=== PATIENT | female | born 1940 | race Caucasian/White ===

== ENCOUNTER 2017-09-07 19:17 | Inpatient (IN) | payer MEDICARE, BC ==
--- NOTE | 2017-09-07 19:36 | EDM.PDOC ---
ED HPI GENERAL MEDICAL PROBLEM - General Chief Complaint: Cardiovascular Problem Stated Complaint: HEART POUNDING,NAUSEA Time Seen by Provider: 09/07/17 19:35 Source of Information: Reports: Patient History Limitations: Reports: No Limitations - History of Present Illness INITIAL COMMENTS - FREE TEXT/NARRATIVE: 77-year-old female presents to the ED with a feeling of her heart pounding hard in her chest. Perhaps made her feel a little dizzy and lightheaded. It occurs at rest as well as well moving. She states it started about mid afternoon this afternoon his been off and on since that time. Associated nausea without any vomiting. She had only a couple crackers for supper. Otherwise she has been feeling well with no recent illnesses. No fever chills nausea or vomiting. No cough or sputum production. No known coronary disease. No chest pain. Doesn't really short of breath with the palpitations. Feels like the heart is working hard pounding hard against her chest. Of note she is on a compound thyroid preparation from [facility]. She ran out of it for about 5 days as they didn't have the ingredients to compounded new batch. She's been back on it for about 6 days. It is believed that the compound contains both T3 and T4 forms of thyroid hormone replacement. She's been using it for about 4 years. Usually doesn't have any troubles with her blood pressure. Onset: Today Onset Date: 09/07/17 Onset Time: 14:00 Duration: Hour(s):, Intermittent, Waxing/Waning Location: Reports: Chest (Feels her heart racing and pounding in her chest. Associated with mild involvement of dizziness.) Quality: Reports: Other (Pounding heart) Severity: Moderate (and going fast.) Improves with: Reports: None Worsens with: Reports: None Context: Denies: Activity, Exercise, Lifting, Sick Contact, Trauma, Other Associated Symptoms: Reports: Loss of Appetite, Malaise, Nausea/Vomiting, Weakness (Nausea with no vomiting). Denies: No Other Symptoms, Confusion, Chest Pain, Cough, cough w sputum, Diaphoresis, Fever/Chills, Headaches, Rash, Seizure, Shortness of Breath, Syncope (With a little nausea.) Treatments [employer]: Reports: Other (see below) (None.) - Related Data Allergies Allergy/AdvReac Type Severity Reaction Status Date / Time No Known Allergies Allergy Verified 09/07/17 19:37 Home Meds: Home Meds . [Unable to Verify Home Med List] 09/07/17 [History] Past Medical History Endocrine/Metabolic History: Reports: Hypothyroidism (Using a compounded medication thyroid supplement from her [facility] pharmacy.) Social & Family History - Living Situation & Occupation Living situation: Reports: Occupation: Retired ED ROS GENERAL - Review of Systems Review Of Systems: See Below Constitutional: Reports: Malaise, Weakness, Fatigue, Decreased Appetite. Denies : Fever, Chills, Weight Loss HEENT: Reports: No Symptoms, Glasses Respiratory: Denies: Shortness of Breath, Wheezing, Pleuritic Chest Pain, Cough , Sputum, Hemoptysis, Other Cardiovascular: Reports: Lightheadedness, Palpitations (See history of present illness). Denies: Chest Pain, Blood Pressure Problem, Claudication, Dyspnea on Exertion, Edema (Little Lightheaded Dizzy When the Palpitations Occur.), Orthopnea Endocrine: Reports: No Symptoms GI/Abdominal: Reports: Nausea (With no vomiting. Started with same time as her heart started palpating working hard this afternoon.) : Reports: Frequency, Incontinence (Mild stress incontinence.) Musculoskeletal: Reports: Joint Pain (Some pain knees low back.) Skin: Reports: No Symptoms Neurological: Reports: No Symptoms Psychiatric: Reports: No Symptoms Hematologic/Lymphatic: Reports: No Symptoms Immunologic: Reports: No Symptoms ED EXAM, GENERAL - Physical Exam Exam: See Below Exam Limited By: No Limitations General Appearance: Alert, WD/WN, Anxious, Mild Distress Eye Exam: Bilateral Eye: Normal Inspection Throat/Mouth: Normal Inspection, Normal Lips, Normal Oropharynx Head: Atraumatic, Normocephalic Neck: Normal Inspection, Supple, Non-Tender, Full Range of Motion. No: Lymphadenopathy (L), Lymphadenopathy (R) Respiratory/Chest: No Respiratory Distress, Lungs Clear, Normal Breath Sounds, No Accessory Muscle Use, Other Cardiovascular: Normal Peripheral Pulses (Marked kyphosis thoracic spine.), Regular Rate, Rhythm, No Edema, No Gallop, No Murmur, No Rub, Other (Monitor reveals heart rate at 86/m in sinus. Occasional PACs were appreciated.) Peripheral Pulses: 2+: Posterior Tibial (L), Posterior Tibial (R), Dorsalis Pedis (L), Dorsalis Pedis (R) GI/Abdominal: Normal Bowel Sounds, Soft, Non-Tender, No Organomegaly, No Distention, No Abnormal Bruit, Other (Total abdominal hysterectomy and BSO scars evident.) Back Exam: Other (Moderate kyphosis thoracic spine mild scoliosis mid thoracic spine) Extremities: Normal Inspection, Normal Range of Motion, Non-Tender, No Pedal Edema Neurological: Alert, Oriented, CN II-XII Intact, Normal Cognition, Normal Gait Psychiatric: Normal Affect, Anxious (Mildly anxious.) Skin Exam: Warm, Dry, Intact, Normal Color, No Rash EKG INTERPRETATION EKG Date: 09/07/17 Time: 19:55 Rhythm: NSR Rate (Beats/Min): 75 [place]: LAD-Left Greenwood Deviation (Left diaphysis deviation of -4 2. Left anterior fascicular block pattern.) P-Wave: Present QRS: Other (Borderline current try criteria for left ventricular hypertrophy pattern. High R-wave in lead 1 deep S wave in lead 3.) ST-T: Other (Mild diffuse early repolarization pattern.) QT: Prolonged (Mildly prolonged.) EKG Interpretation Comments: Abnormal ECG Course - Vital Signs Last Recorded V/S: Last Vital Signs Temp 35.9 C 09/07/17 19:34 Pulse 81 09/07/17 21:52 Resp 15 09/07/17 19:34 BP 149/70 H 09/07/17 21:52 Pulse Ox 100 09/07/17 19:34 - Orders/Labs/Meds Orders: Active Orders 24 hr Category Date Time Status Admission Status [Patient Status] [ADT] Routine ADT 09/07/17 22:45 Active EKG Documentation Completion [RC] STAT Care 09/07/17 19:43 Active Chest 1V Frontal [CR] Stat Exams 09/07/17 19:43 Taken FREE T3 [REF] Stat Lab 09/07/17 20:06 Received Sodium Chloride 0.9% [Normal Saline] 1,000 ml Med 09/07/17 20:00 Active IV ASDIRECTED Medication Orders Sodium Chloride (Normal Saline) 1,000 mls @ 100 mls/hr IV ASDIRECTED DYLLAN Last Admin: 09/07/17 20:19 Dose: 100 mls/hr Labs: Laboratory Tests 09/07/17 09/07/17 09/07/17 Range/Units 20:06 20:06 20:06 WBC 5.72 (3.98-10.04) K/mm3 RBC 4.21 (3.98-5.22) M/mm3 Hgb 12.9 (11.2-15.7) gm/L Hct 38.3 (34.1-44.9) % MCV 91.0 (79.4-94.8) fl MCH 30.6 (25.6-32.2) pg MCHC 33.7 (32.2-35.5) g/dl RDW Std Deviation 42.7 (36.4-46.3) fL Plt Count 142 L (182-369) K/mm3 MPV 12.6 H (9.4-12.3) fl Neutrophils % (Manual) 85 H (40-60) % Band Neutrophils % 0 (0-10) % Lymphocytes % (Manual) 12 L (20-40) % Atypical Lymphs % 0 % Monocytes % (Manual) 3 (2-10) % Eosinophils % (Manual) 0 L (0.7-5.8) % Basophils % (Manual) 0 L (0.1-1.2) Platelet Estimate Adequate RBC Morph Comment Normal PT 11.4 (8.0-13.0) SECONDS INR 1.06 Sodium 140 (136-145) mEq/L Potassium 3.4 L (3.5-5.1) mEq/L Chloride 104 (98-107) mEq/L Carbon Dioxide 23 (21-32) mEq/L Anion Gap 16.4 H (5-15) BUN 16 (7-18) mg/dL Creatinine 0.9 (0.55-1.02) mg/dL Est Cr Clr Drug Dosing 57.51 mL/min Estimated GFR (MDRD) > 60 (>60) mL/min BUN/Creatinine Ratio 17.8 (14-18) Glucose 111 (83-115) mg/dL Calcium 9.9 (8.5-10.1) mg/dL Magnesium 1.8 (1.8-2.4) mg/dl Total Bilirubin 0.6 (0.2-1.0) mg/dL AST 20 (15-37) U/L ALT 21 (14-59) U/L Alkaline Phosphatase 86 (46-116) U/L CK-MB (CK-2) 0.7 (0-3.6) ng/ml Troponin I < 0.017 (0.00-0.056) ng/mL NT-Pro-B Natriuret Pep (0-450) pg/mL Total Protein 7.4 (6.4-8.2) g/dl Albumin 4.0 (3.4-5.0) g/dl Globulin 3.4 gm/dL Albumin/Globulin Ratio 1.2 (1-2) Free T4 0.83 (0.76-1.46) ng/dL TSH 3rd Generation 2.170 (0.358-3.74) uIU/mL 09/07/17 Range/Units 20:06 WBC (3.98-10.04) K/mm3 RBC (3.98-5.22) M/mm3 Hgb (11.2-15.7) gm/L Hct (34.1-44.9) % MCV (79.4-94.8) fl MCH (25.6-32.2) pg MCHC (32.2-35.5) g/dl RDW Std Deviation (36.4-46.3) fL Plt Count (182-369) K/mm3 MPV (9.4-12.3) fl Neutrophils % (Manual) (40-60) % Band Neutrophils % (0-10) % Lymphocytes % (Manual) (20-40) % Atypical Lymphs % % Monocytes % (Manual) (2-10) % Eosinophils % (Manual) (0.7-5.8) % Basophils % (Manual) (0.1-1.2) Platelet Estimate RBC Morph Comment PT (8.0-13.0) SECONDS INR Sodium (136-145) mEq/L Potassium (3.5-5.1) mEq/L Chloride (98-107) mEq/L Carbon Dioxide (21-32) mEq/L Anion Gap (5-15) BUN (7-18) mg/dL Creatinine (0.55-1.02) mg/dL Est Cr Clr Drug Dosing mL/min Estimated GFR (MDRD) (>60) mL/min BUN/Creatinine Ratio (14-18) Glucose (83-115) mg/dL Calcium (8.5-10.1) mg/dL Magnesium (1.8-2.4) mg/dl Total Bilirubin (0.2-1.0) mg/dL AST (15-37) U/L ALT (14-59) U/L Alkaline Phosphatase (46-116) U/L CK-MB (CK-2) (0-3.6) ng/ml Troponin I (0.00-0.056) ng/mL NT-Pro-B Natriuret Pep 182 (0-450) pg/mL Total Protein (6.4-8.2) g/dl Albumin (3.4-5.0) g/dl Globulin gm/dL Albumin/Globulin Ratio (1-2) Free T4 (0.76-1.46) ng/dL TSH 3rd Generation (0.358-3.74) uIU/mL Meds: Medications Generic Name Dose Route Start Last Admin Trade Name Freq PRN Reason Stop Dose Admin Sodium Chloride 1,000 mls @ 100 mls/hr 09/07/17 20:00 09/07/17 20:19 Normal Saline IV 100 mls/hr ASDIRECTED DYLLAN Administration Discontinued Medications Generic Name Dose Route Start Last Admin Trade Name Freq PRN Reason Stop Dose Admin Metoprolol Succinate 25 mg 09/07/17 21:37 09/07/17 21:52 Toprol Xl PO 09/07/17 21:38 25 mg ONETIME ONE Administration Metoprolol Tartrate 5 mg 09/07/17 21:28 09/07/17 21:43 Lopressor IVPUSH 09/07/17 21:29 5 mg ONETIME ONE Administration Ondansetron HCl 4 mg 09/07/17 19:46 09/07/17 20:20 Zofran IVPUSH 09/07/17 19:47 4 mg ONETIME ONE Administration - Radiology Interpretation Free Text/Narrative:: 77-year-old female presents the ED with a history of intermittent palpitations where she feels her heart is racing and beating hard against her chest. This is happened intermittently since mid afternoon today. It can occur at rest or seated as well as standing. Associated mild dizziness or lightheadedness. Associated nausea without any vomiting. I'm time of my assessment she is a sinus rhythm and in the 80s with occasional PAC appreciated. Nurses appreciated the heart jumped some abdominal 120/m while she was lying and hopefully will have a strip of this recorded. Examination is completely normal. The only thing she's on his thyroid compounded supplement. She was off for 5 days and start back on about a week ago. Possible spike in thyroid hormone to cause palpitations. Plan: IV will be normal saline at 100 mils per hour. We'll give her Zofran 4 mg IV for nausea relief. She has quite anxious. ECG will be done with routine labs. This included T4 T3 and TSH. One view chest x-ray will also be obtained - Re-Assessments/Exams Free Text/Narrative Re-Assessment/Exam: 09/07/17 20:29 chest x-ray done portably shows moderate hyperinflated lung malik bilaterally. Cardiac silhouette is within normal limits. The visualized portion of the lung malik are normal. 09/07/17 21:01 White count is 5.72 with 85% neutrophils no bands. Hemoglobin is 12.9 with hematocrit of 38.3. Blood counts 142,000. PT is 11.4 with an INR 1.06. Sodium 140 with potassium of 3.4. Chloride 104 with a bicarbonate of 23. And a gap is 16.4. BUN is 16 with a creatinine of 0.9. Glucose is 111 with a calcium of 9.9. Magnesium is normal 1.8 total bilirubin is 0.6 liver function normal CK-MB fraction 0.7 troponin I is less than 0.017. BNP is 182. TSH is 2.170 normal. Free T4 is also low normal at 0.83. Therefore no laboratory abnormalities are evident to caused her palpitations. I'm going to have her get up walk L [place] she is about to the monitors to see if we can precipitate any further palpitations or arrhythmias. 09/07/17 21:27 rhythm strips obtained while she was in the bathroom and walking in the olvera reveal that she slips up into a rapid heart rate at around 150/m with T-wave inversion suggesting junctional tachycardia. It could be an ectopic atrial rhythm as well. Question whether she needs to stay in hospital versus try medication as an outpatient such as metoprolol. 09/07/17 21:46 case discussed with on-call hospice Dr. [place]. Due to the nature of her arrhythmia traveling as high as 155 1 60/m and intermittent places her at risk of stroke. I'm going to give her metoprolol 5 mg IV and then 25 mg Toprol XL by mouth. Discussed case with Dr. [place] and she will be admitted to the med surgery floor on telemetry as a full inpatient. Departure - Departure Time of Disposition: 22:47 Disposition: Admitted As Inpatient 67 Condition: Fair Clinical Impression: Paroxysmal atrial tachycardia by electrocardiogram, Hypokalemia Referrals: Swapnil Hawthorne MD [Primary Care Provider] - Forms: ED Department Discharge - My Orders Last 24 Hours: My Active Orders 09/07/17 19:43 EKG Documentation Completion [RC] STAT Chest 1V Frontal [CR] Stat 09/07/17 20:00 Sodium Chloride 0.9% [Normal Saline] 1,000 ml IV ASDIRECTED 09/07/17 20:06 FREE T3 [REF] Stat 09/07/17 22:45 Admission Status [Patient Status] [ADT] Routine - Assessment/Plan Last 24 Hours: My Active Orders 09/07/17 19:43 EKG Documentation Completion [RC] STAT Chest 1V Frontal [CR] Stat 09/07/17 20:00 Sodium Chloride 0.9% [Normal Saline] 1,000 ml IV ASDIRECTED 09/07/17 20:06 FREE T3 [REF] Stat 09/07/17 22:45 Admission Status [Patient Status] [ADT] Routine
[2017-09-07] MEDS ORDERED: Ondansetron 4 MG/2 ML SDV IVPUSH ONE (19:46)
[2017-09-07] MEDS ORDERED: Sodium Chloride 0.9% 1,000 ML IV SCH (20:00)
[2017-09-07] MEDS ORDERED: Metoprolol Tartrate 5 MG/5 ML SDV IVPUSH ONE (21:28)
[2017-09-07] MEDS ORDERED: Metoprolol Succinate 25 MG Tab.ER PO ONE (21:37)
[2017-09-07] MEDS ORDERED: Metoprolol Tartrate 5 MG/5 ML SDV IVPUSH PRN (23:16)
[2017-09-07] MEDS ORDERED: LORazepam 2 MG/ML SDV IVPUSH PRN (23:23)
[2017-09-07] MEDS ORDERED: Nitroglycerin 0.4 MG Tab.SL SL PRN (23:25)
[2017-09-07] MEDS ORDERED: Temazepam 7.5 MG Cap PO PRN (23:25)
[2017-09-07] MEDS ORDERED: Morphine 2 MG/ML Syringe IVPUSH PRN (23:25)
[2017-09-07] MEDS ORDERED: Lactated Ringers 1,000 ML IV SCH (23:30)
[2017-09-08] MEDS ORDERED: Acetaminophen 325 MG Tab PO PRN (05:40)
[2017-09-08] MEDS ORDERED: Morphine 4 MG/ML Syringe IVPUSH PRN (07:15)
--- NOTE | 2017-09-08 07:37 | CR ---
Chest: Portable view of the chest was obtained. Comparison: Prior chest x-ray of 07/14/10. Heart size and mediastinum are within normal limits for portable technique. Incidental tortuosity of the thoracic aorta is seen. Lungs are clear with no acute parenchymal densities. Mild scoliosis is noted within the spine. Impression: 1. Incidental findings. Nothing acute is identified on portable chest x-ray. Diagnostic code #2
--- NOTE | 2017-09-08 09:33 | CR ---
Chest: Two views of the chest were obtained. Comparison: Prior chest x-ray of 09/07/17. Heart size is normal. Tortuous thoracic aorta is seen. Lungs are clear. Lungs are hyperinflated compatible with emphysematous change. Mild degenerative change is noted within the spine with mild scoliosis. Impression: 1. Emphysematous change. Other incidental findings. 2. Nothing acute is seen. No significant change is seen from previous chest x-ray. Diagnostic code #2
[2017-09-08] MEDS: Enoxaparin 40 MG/0.4 ML Syringe SUBCUT SCH (10:19)
[2017-09-08] MEDS ORDERED: Magnesium Sulfate/Water 2 GM in Premix Bag 1 BAG IV ONE (11:43)
[2017-09-08] MEDS: [UNRECOGNIZED DRUG - OTHER] PO SCH (12:10)
--- NOTE | 2017-09-08 12:23 | PCM.HP ---
H&P History of Present Illness - General Date of Service: 09/08/17 Source of Information: Patient, Provider History Limitations: Reports: No Limitations - History of Present Illness Initial Comments - Free Text/Narative: 77 year old female with PMH of thyroid disease, presents with palpitations. 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 There has been shortness of breath associated with the palpitations. She denies chest pain, orthopnea, PND, syncopal/presyncopal episodes. The patient denies a cardiac history. The patient apparently takes a thyroid preparation that contains T3/T4. She has been without it for 4 days prior to admission. The patient had episodes documented with ambulation of a rapid heart rate, NCT; cannot exclude junctional tachycardia cf atrial tachycardia. She will be admitted to [place] telemetry. Onset of Symptoms: Reports: Sudden Symptom Onset Date: 09/07/17 Duration of Symptoms: Reports: Hour(s):, Getting Worse Location: Reports: Generalized Improves with: Reports: Medication Worsens with: Reports: Movement Associated Symptoms: Reports: Nausea/Vomiting, Shortness of Breath, Weakness - Related Data Allergies/Adverse Reactions: Allergies Allergy/AdvReac Type Severity Reaction Status Date / Time environmental/smoke Allergy Sneezing Uncoded 09/08/17 00:08 Home Medications: Home Meds C-Thyroid. 90 mg PO ACBREAKFAST 09/08/17 [History] Past Medical History HEENT History: Reports: Other (See Below) Other HEENT History: wears glasses Musculoskeletal History: Reports: Arthritis Endocrine/Metabolic History: Reports: Hypothyroidism - Infectious Disease History Infectious Disease History: Reports: Chicken Pox - Past Surgical History HEENT Surgical History: Reports: Tonsillectomy GI Surgical History: Reports: Appendectomy Female Surgical History: Reports: Hysterectomy Musculoskeletal Surgical History: Reports: Carpal Tunnel, Knee Replacement Other Musculoskeletal Surgeries/Procedures:: bilateral knee replacements Social & Family History - Family History Family Medical History: Noncontributory - Tobacco Use Smoking Status *Q: Never Smoker Second Hand Smoke Exposure: No - Caffeine Use Caffeine Use: Reports: Coffee Caffeine Use Comment: 1 cup/day currently, cut down from 3 cup/day 2 months ago - Recreational Drug Use Recreational Drug Use: No - Living Situation & Occupation Living situation: Reports: Occupation: Retired H&P Review of Systems - Review of Systems: Review Of Systems: See Below General: Reports: Malaise, Weakness, Fatigue, Decreased Appetite HEENT: Reports: No Symptoms Pulmonary: Reports: Shortness of Breath Cardiovascular: Reports: Palpitations Gastrointestinal: Reports: No Symptoms Genitourinary: Reports: No Symptoms Musculoskeletal: Reports: No Symptoms Skin: Reports: No Symptoms Psychiatric: Reports: Anxiety Neurological: Reports: No Symptoms Hematologic/Lymphatic: Reports: No Symptoms Immunologic: Reports: No Symptoms Exam - Exam Exam: See Below - Vital Signs Vital Signs: Last Vital Signs Temp 36.8 C 09/08/17 07:43 Pulse 67 09/08/17 07:43 Resp 14 09/08/17 07:43 BP 123/97 H 09/08/17 07:43 Pulse Ox 98 09/08/17 07:43 Weight: 77.474 kg - Exam Quality Assessment: Supplemental Oxygen, DVT Prophylaxis General: Alert, Oriented, Cooperative HEENT: Conjunctiva Clear, Nares Patent, Normal Nasal Septum, Pupils Equal, Pupils Reactive, PERRLA Neck: Supple, Trachea Midline Lungs: Normal Respiratory Effort Cardiovascular: Regular Rate, Regular Rhythm GI/Abdominal Exam: Normal Bowel Sounds, Soft, Non-Tender, No Organomegaly, No Distention (Female) Exam: Deferred Rectal (Female) Exam: Deferred Back Exam: Normal Inspection Extremities: Normal Inspection, Non-Tender, Normal Capillary Refill Skin: Warm Neurological: Cranial Nerves Intact, Normal Gait, Normal Speech Neuro Extensive - Mental Status: Alert, Oriented x3, Normal Mood/Affect, Normal Cognition, Memory Intact Neuro Extensive - Motor, Sensory, Reflexes: CN II-XII Intact Psychiatric: Alert, Normal Affect, Normal Mood - Patient Data Lab Results Last 24 hrs: Laboratory Results - last 24 hr 09/07/17 09/08/17 09/08/17 Range/Units 23:45 05:22 05:22 WBC 4.70 (3.98-10.04) K/mm3 RBC 3.79 L (3.98-5.22) M/mm3 Hgb 11.8 (11.2-15.7) gm/L Hct 35.0 (34.1-44.9) % MCV 92.3 (79.4-94.8) fl MCH 31.1 (25.6-32.2) pg MCHC 33.7 (32.2-35.5) g/dl RDW Std Deviation 43.5 (36.4-46.3) fL Plt Count 140 L (182-369) K/mm3 MPV 12.7 H (9.4-12.3) fl Neut % (Auto) 69.6 (34.0-71.1) % Lymph % (Auto) 17.2 L (19.3-51.7) % [place] % (Auto) 9.6 (4.7-12.5) % Eos % (Auto) 3.0 (0.7-5.8) Baso % (Auto) 0.4 (0.1-1.2) % Neut # (Auto) 3.27 (1.56-6.13) K/mm3 Lymph # (Auto) 0.81 L (1.18-3.74) K/mm3 [place] # (Auto) 0.45 H (0.24-0.36) K/mm3 Eos # (Auto) 0.14 (0.04-0.36) K/mm3 Baso # (Auto) 0.02 (0.01-0.08) K/mm3 Sodium 141 (136-145) mEq/L Potassium 3.8 (3.5-5.1) mEq/L Chloride 108 H (98-107) mEq/L Carbon Dioxide 24 (21-32) mEq/L Anion Gap 12.8 (5-15) BUN 15 (7-18) mg/dL Creatinine 0.9 (0.55-1.02) mg/dL Est Cr Clr Drug Dosing 57.51 mL/min Estimated GFR (MDRD) > 60 (>60) mL/min BUN/Creatinine Ratio 16.7 (14-18) Glucose 103 (83-115) mg/dL Calcium 8.9 (8.5-10.1) mg/dL Magnesium 1.7 L (1.8-2.4) mg/dl Troponin I < 0.017 < 0.017 (0.00-0.056) ng/mL NT-Pro-B Natriuret Pep (0-450) pg/mL 09/08/17 Range/Units 05:22 WBC (3.98-10.04) K/mm3 RBC (3.98-5.22) M/mm3 Hgb (11.2-15.7) gm/L Hct (34.1-44.9) % MCV (79.4-94.8) fl MCH (25.6-32.2) pg MCHC (32.2-35.5) g/dl RDW Std Deviation (36.4-46.3) fL Plt Count (182-369) K/mm3 MPV (9.4-12.3) fl Neut % (Auto) (34.0-71.1) % Lymph % (Auto) (19.3-51.7) % [place] % (Auto) (4.7-12.5) % Eos % (Auto) (0.7-5.8) Baso % (Auto) (0.1-1.2) % Neut # (Auto) (1.56-6.13) K/mm3 Lymph # (Auto) (1.18-3.74) K/mm3 [place] # (Auto) (0.24-0.36) K/mm3 Eos # (Auto) (0.04-0.36) K/mm3 Baso # (Auto) (0.01-0.08) K/mm3 Sodium (136-145) mEq/L Potassium (3.5-5.1) mEq/L Chloride (98-107) mEq/L Carbon Dioxide (21-32) mEq/L Anion Gap (5-15) BUN (7-18) mg/dL Creatinine (0.55-1.02) mg/dL Est Cr Clr Drug Dosing mL/min Estimated GFR (MDRD) (>60) mL/min BUN/Creatinine Ratio (14-18) Glucose (83-115) mg/dL Calcium (8.5-10.1) mg/dL Magnesium (1.8-2.4) mg/dl Troponin I (0.00-0.056) ng/mL NT-Pro-B Natriuret Pep 324 (0-450) pg/mL Result Diagrams: 09/08/17 05:22 09/08/17 05:22 *Q Meaningful Use (ADM) - VTE *Q VTE Criteria *Q: - Stroke *Q Stroke Criteria *Q: - AMI *Q AMI Criteria *Q: - Problem List (1) Hypothyroid SNOMED Code(s): 11631096 ICD Code: E03.9 - HYPOTHYROIDISM, UNSPECIFIED Status: Acute Current Visit : Yes (2) Hypokalemia SNOMED Code(s): 43335841 ICD Code: E87.6 - HYPOKALEMIA Status: Acute Current Visit: Yes (3) Paroxysmal atrial tachycardia by electrocardiogram SNOMED Code(s): 703383390 ICD Code: I47.1 - SUPRAVENTRICULAR TACHYCARDIA Status: Acute Current Visit: Yes Problem List Initiated/Reviewed/Updated: Yes Orders Last 24hrs: Active Orders 24 hr Category Date Time Status Bedrest [RC] 09,21 Care 09/07/17 23:17 Active Consult to Case Management [CONS] Routine Cons 09/08/17 11:37 Active Heart Healthy Diet [DIET] Diet 09/08/17 Breakfast Active BASIC METABOLIC PANEL,BMP [CHEM] Routine Lab 09/08/17 05:22 Results BMP [BASIC METABOLIC PANEL,BMP] [CHEM] DAILY Lab 09/09/17 05:00 Ordered BMP [BASIC METABOLIC PANEL,BMP] [CHEM] DAILY Lab 09/10/17 05:00 Ordered BMP [BASIC METABOLIC PANEL,BMP] [CHEM] DAILY Lab 09/11/17 05:00 Ordered CBC WITH AUTO DIFF [HEME] DAILY Lab 09/09/17 05:00 Ordered CBC WITH AUTO DIFF [HEME] DAILY Lab 09/10/17 05:00 Ordered CBC WITH AUTO DIFF [HEME] DAILY Lab 09/11/17 05:00 Ordered CRP [C-REACTIVE PROTEIN] [CHEM] DAILY Lab 09/09/17 05:00 Ordered CRP [C-REACTIVE PROTEIN] [CHEM] DAILY Lab 09/10/17 05:00 Ordered CRP [C-REACTIVE PROTEIN] [CHEM] DAILY Lab 09/11/17 05:00 Ordered INFLUENZA A+B AG SCREEN [RM] Routine Lab 09/08/17 11:43 Ordered LIPID PANEL [CHEM] DAILY Lab 09/09/17 05:00 Ordered LIPID PANEL [CHEM] DAILY Lab 09/10/17 05:00 Ordered LIPID PANEL [CHEM] DAILY Lab 09/11/17 05:00 Ordered MAGNESIUM [CHEM] Routine Lab 09/08/17 05:22 Results MYCOPLASMA PNEUMONIAE IGM AB [CHEM] Routine Lab 09/08/17 05:22 Results TROPONIN I [CHEM] Routine Lab 09/08/17 05:22 Results TROPONIN I [CHEM] Routine Lab 09/08/17 18:00 Ordered Acetaminophen [Tylenol] Med 09/08/17 05:40 Active 650 mg PO Q4H PRN Enoxaparin [Lovenox] Med 09/08/17 09:00 Active 40 mg SUBCUT DAILY LORazepam [Ativan] Med 09/07/17 23:23 Active 0.5 mg IVPUSH Q6H PRN Magnesium Sulfate/Water [Magnesium Sulfate 2 GM in Med 09/08/17 11:43 Active Water 50 ML] 2 gm Premix Bag 1 bag IV ONETIME Metoprolol Succinate [Toprol XL] Med 09/08/17 18:00 Active 25 mg PO DAILY Metoprolol Tartrate [Lopressor] Med 09/07/17 23:16 Active 5 mg IVPUSH Q4H PRN Morphine Med 09/08/17 07:15 Active 1 mg IVPUSH Q6H PRN Nitroglycerin [Nitrostat] Med 09/07/17 23:25 Active 0.4 mg SL Q5M PRN Patient's Own Medication [Ptom] Med 09/08/17 11:00 Active 0 each PO DAILY Temazepam [Restoril] Med 09/07/17 23:25 Active 7.5 mg PO BEDTIME PRN Resuscitation Status Routine Resus Stat 09/08/17 00:04 Ordered Medication Orders Acetaminophen (Tylenol) 650 mg PO Q4H PRN PRN Reason: Pain Last Admin: 09/08/17 12:11 Dose: 650 mg Enoxaparin Sodium (Lovenox) 40 mg SUBCUT DAILY [facility] Last Admin: 09/08/17 10:19 Dose: 40 mg Magnesium Sulfate 2 gm/ Premix 50 mls @ 25 mls/hr IV ONETIME ONE Stop: 09/08/17 13:42 Last Admin: 09/08/17 12:11 Dose: 25 mls/hr Lorazepam (Ativan) 0.5 mg IVPUSH Q6H PRN PRN Reason: Anxiety Metoprolol Succinate (Toprol Xl) 25 mg PO DAILY [facility] Metoprolol Tartrate (Lopressor) 5 mg IVPUSH Q4H PRN PRN Reason: Tachycardia Morphine Sulfate (Morphine) 1 mg IVPUSH Q6H PRN PRN Reason: Pain Nitroglycerin (Nitrostat) 0.4 mg SL Q5M PRN PRN Reason: Chest Pain C-Thyroid 90 Mg 0 each PO DAILY [facility] Last Admin: 09/08/17 12:10 Dose: 1 each Temazepam (Restoril) 7.5 mg PO BEDTIME PRN PRN Reason: Sleep Assessment/Plan Comment:: Impression: Narrow Complex Tachycardia/Paroxysmal atrial tachycardia Hypothyroidism-resumed supplement after 5 days without it. Chronic sinusitis with occasional headache Plan: Ms with telemetry BB IV/oral Infectious work up Correct electrolytes Resume home meds Daily labs Bedrest overnight, advance thereafter with telemetry Consult PT/OT/CM (re: ) DVT/GI prophylaxis
[2017-09-08] MEDS ORDERED: Ibuprofen 400 MG Tab PO PRN (15:10)
[2017-09-08] MEDS: Metoprolol Succinate 25 MG Tab.ER PO SCH (17:20)
[2017-09-08] MEDS: Sodium Chloride 0.65% Nasal Spray 45 ML Bottle NAS PRN (18:41)
[2017-09-09] MEDS ORDERED: [UNRECOGNIZED DRUG - OTHER] PO SCH (06:00)
--- NOTE | 2017-09-09 06:48 | PCM.DCSUM1 ---
Discharge Summary - Hospital Course Free Text/Narrative:: 77 year old female with PMH of thyroid disease, presents with palpitations. 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 There has been shortness of breath associated with the palpitations. She denies chest pain, orthopnea, PND, syncopal/presyncopal episodes. The patient denies a cardiac history. The patient apparently takes a thyroid preparation that contains T3/T4. She has been without it for 4 days prior to admission. The patient had episodes documented with ambulation of a rapid heart rate, NCT; cannot exclude junctional tachycardia cf atrial tachycardia. She will be admitted to [place] telemetry. - Discharge Data Discharge Date: 09/09/17 (admit date 09/07/17) Discharge Disposition: Home, Self-Care 01 Condition: Good - Discharge Diagnosis/Problem(s) (1) Paroxysmal atrial tachycardia by electrocardiogram SNOMED Code(s): 955725872 ICD Code: I47.1 - SUPRAVENTRICULAR TACHYCARDIA Status: Acute Priority: High Current Visit: Yes (2) Hypokalemia SNOMED Code(s): 76337599 ICD Code: E87.6 - HYPOKALEMIA Status: Resolved Priority: High Current Visit: Yes (3) Hypothyroid SNOMED Code(s): 39179468 ICD Code: E03.9 - HYPOTHYROIDISM, UNSPECIFIED Status: Chronic Priority: Medium Current Visit: Yes Qualifiers: Hypothyroidism type: unspecified Qualified Code(s): E03.9 - Hypothyroidism , unspecified - Patient Summary/Data Operative Procedure(s) Performed: None Complications: None Consults: Consultations 09/08/17 11:37 Consult to Case Management [CONS] Routine Labs Pending at D/C: Holter monitor at discharge Echocardiogram results pending Recommended Follow-up Testing/Procedures: Patient DC instructions: Follow up within one week with PCP, Dr. Hawthorne -Follow up on thyroid as well Holter monitor on discharge with results to PCP Echocardiogram results are pending and can follow up with PCP to review results Push fluids/stay hydrated Potassium rich foods Planned Operative Procedure(s) after DC: None Hospital Course: Impression: Narrow Complex Tachycardia/Paroxysmal atrial tachycardia Hypothyroidism-resumed supplement after 5 days without it. Chronic sinusitis with occasional headache Plan: Ms with telemetry BB IV/oral----tolerated toprol xl 25mg daily, will be dc'd with this Infectious work up--negative Correct electrolytes Resume home meds Daily labs Bedrest overnight, advance thereafter with telemetry--doing well, no calls on telemetry overnight Consult PT/OT/CM (re: ) DVT/GI prophylaxis - Patient Instructions Diet: Heart Healthy Diet, Drink 8-10+ Glasses/Day Activity: As Tolerated Driving: May Drive Today Showering/Bathing: May Shower - Discharge Plan Prescriptions/Med Rec: Metoprolol Succinate [Toprol XL] 25 mg PO DAILY #30 tab.er Home Medications: Home Meds C-Thyroid. 90 mg PO ACBREAKFAST 09/08/17 [History] Metoprolol Succinate [Toprol XL] 25 mg PO DAILY #30 tab.er 09/09/17 [Rx] Patient Handouts: Supraventricular Tachycardia, Adult, [id number], Hypokalemia, Hypothyroidism, Potassium Content of Foods Forms: ED Department Discharge Referrals: Swapnil Hawthorne MD [Primary Care Provider] - - Discharge Summary/Plan Comment DC Time >30 min.: Yes (40 min) - General Info Date of Service: 09/09/17 Admission Dx/Problem (Free Text: Tachycardia Doing well; HR controlled now with toprol. Plans for DC home today. Functional Status: Reports: Pain Controlled, Tolerating Diet, Ambulating, Urinating. Denies: New Symptoms - Review of Systems General: Reports: No Symptoms HEENT: Reports: No Symptoms Pulmonary: Reports: No Symptoms Cardiovascular: Reports: No Symptoms Gastrointestinal: Reports: No Symptoms Genitourinary: Reports: No Symptoms Musculoskeletal: Reports: No Symptoms Skin: Reports: No Symptoms Neurological: Reports: No Symptoms Psychiatric: Reports: No Symptoms - Patient Data Vitals - Most Recent: Last Vital Signs Temp 98.8 F 09/08/17 19:46 Pulse 61 09/08/17 19:46 Resp 16 09/08/17 19:46 BP 120/69 09/08/17 19:46 Pulse Ox 97 09/08/17 19:46 Weight - Most Recent: 170 lb 12.8 oz I&O - Last 24 hours: Intake & Output 09/08/17 09/08/17 09/09/17 14:59 22:59 06:59 Intake Total 180 1610 Output Total 750 Balance 180 860 Lab Results - Last 24 hrs: Laboratory Results - last 24 hr 09/08/17 09/08/17 Range/Units 05:22 17:50 Troponin I < 0.017 (0.00-0.056) ng/mL Mycoplasma pneumon IgM Negative (NEGATIVE) ROLA Results - Last 24 hrs: Microbiology 09/08/17 15:28 Influenza Type A Antigen Screen - Final Nasal, Unspecified NEGATIVE INFLUENZA A VIRUS AG Influenza Type B Antigen Screen - Final NEGATIVE INFLUENZA B VIRUS AG Med Orders - Current: Current Medications Acetaminophen (Tylenol) 650 mg PO Q4H PRN PRN Reason: Pain Last Admin: 09/08/17 12:11 Dose: 650 mg Enoxaparin Sodium (Lovenox) 40 mg SUBCUT DAILY [facility] Last Admin: 09/08/17 10:19 Dose: 40 mg Ibuprofen (Motrin) 400 mg PO Q6H PRN PRN Reason: Headache Last Admin: 09/08/17 15:25 Dose: 400 mg Lorazepam (Ativan) 0.5 mg IVPUSH Q6H PRN PRN Reason: Anxiety Metoprolol Succinate (Toprol Xl) 25 mg PO DAILY [facility] Last Admin: 09/08/17 17:20 Dose: Not Given Metoprolol Tartrate (Lopressor) 5 mg IVPUSH Q4H PRN PRN Reason: Tachycardia Morphine Sulfate (Morphine) 1 mg IVPUSH Q6H PRN PRN Reason: Pain Nitroglycerin (Nitrostat) 0.4 mg SL Q5M PRN PRN Reason: Chest Pain C-Thyroid 90 Mg 0 each PO DAILY [facility] Last Admin: 09/08/17 12:10 Dose: 1 each Sodium Chloride ([place] Nasal [place]) 0 ml MARISSA Q4H PRN PRN Reason: Congestion Last Admin: 09/08/17 18:41 Dose: 1 spray Temazepam (Restoril) 7.5 mg PO BEDTIME PRN PRN Reason: Sleep Discontinued Medications Sodium Chloride (Normal Saline) 1,000 mls @ 100 mls/hr IV ASDIRECTED [facility] Last Admin: 09/07/17 20:19 Dose: 100 mls/hr Lactated Ringer's (Ringers, Lactated) 1,000 mls @ 75 mls/hr IV ASDIRECTED [facility] Stop: 09/08/17 09:31 Last Admin: 09/07/17 23:55 Dose: 75 mls/hr Magnesium Sulfate 2 gm/ Premix 50 mls @ 25 mls/hr IV ONETIME ONE Stop: 09/08/17 13:42 Last Admin: 09/08/17 12:11 Dose: 25 mls/hr Metoprolol Succinate (Toprol Xl) 25 mg PO ONETIME ONE Stop: 09/07/17 21:38 Last Admin: 09/07/17 21:52 Dose: 25 mg Metoprolol Tartrate (Lopressor) 5 mg IVPUSH ONETIME ONE Stop: 09/07/17 21:29 Last Admin: 09/07/17 21:43 Dose: 5 mg Morphine Sulfate (Morphine) 1 mg IVPUSH Q6H PRN PRN Reason: Pain Last Admin: 09/08/17 01:41 Dose: 1 mg Non-Formulary Medication (C-Thyroid.) 90 mg PO ACBREAKFAST DYLLAN Ondansetron HCl (Zofran) 4 mg IVPUSH ONETIME ONE Stop: 09/07/17 19:47 Last Admin: 09/07/17 20:20 Dose: 4 mg - Exam Quality Assessment: Reports: DVT Prophylaxis General: Reports: Alert, Oriented, Cooperative, No Acute Distress HEENT: Reports: Pupils Equal, EOMI, Mucous Membr. Moist/[place] Neck: Reports: Supple Lungs: Reports: Clear to Auscultation, Normal Respiratory Effort Cardiovascular: Reports: Regular Rate, Regular Rhythm GI/Abdominal Exam: Normal Bowel Sounds, Soft, Non-Tender (Female) Exam: Deferred Rectal (Female) Exam: Deferred Extremities: No Pedal Edema, Normal Capillary Refill Neurological: Reports: No New Focal Deficit Psy/Mental Status: Reports: Alert, Normal Affect, Normal Mood *Q Meaningful Use (DIS) - VTE *Q VTE Criteria *Q: - Stroke *Q Stroke Criteria *Q: - AMI *Q AMI Criteria *Q:
[2017-09-09] MEDS: Metoprolol Succinate 25 MG Tab.ER PO SCH (08:46)
[2017-09-09] MEDS: Sodium Chloride 0.65% Nasal Spray 45 ML Bottle NAS PRN (08:50)
[2017-09-09] MEDS: [UNRECOGNIZED DRUG - OTHER] PO SCH (08:51)
[2017-09-09] MEDS: Enoxaparin 40 MG/0.4 ML Syringe SUBCUT SCH (08:52)
[2017-09-09] MEDS ORDERED: Rosuvastatin 10 MG Tab PO SCH (09:00)
== END 2017-09-09 10:15 | disposition home or self-care (01) | DRG 310 ==
LOC: JD.ED 19:17 → JD.MS 22:49
PROVIDERS: ADMIT Internal Medicine Cardiovascular Disease; ATTEND Internal Medicine Cardiovascular Disease
DX: I47.1 Supraventricular tachycardia (principal); E87.6 Hypokalemia; E03.9 Hypothyroidism, unspecified
CPT/HCPCS: 36415; 71045; 80053; 82553; 83735; 83880; 84439; 84443; 84481; 84484; 85025; 85610; 93005; 96361; 96374; 96375; 99285; A9270; J2405; J7040; 71046; 71046-26; 80048; 80061; 86140; 86738; 87804; 93010; 93306; 99222; 99239; J1650; J2270; J3475; J3490; J7120

== ENCOUNTER 2022-12-24 10:59 | Day surgery (SDC) | payer MEDICARE, BC ==
[~2022-12-24 10:59] MED LIST: Cefuroxime 10 MG/ML SYRINGE EYERT SCH; Lidocaine 1% PF 2 ML SDV INJECT SCH; Pilocarpine 4% Ophth Soln 15 ML Bot EYERT SCH
[2022-12-24] MEDS ORDERED: Ondansetron 4 MG/2 ML SDV IVPUSH PRN (11:58)
[2022-12-24] MEDS: Polymyxin B/Trimethoprim 10 ML Bottle EYERT SCH ×3 (12:08→13:54)
[2022-12-24] MEDS: Brimonidine 0.2% Ophth Soln 5 ML Bottle EYERT SCH ×3 (12:13→13:54)
[2022-12-24] MEDS: Phenylephrine 2.5% Opth Drops 10 mL EYERT SCH ×5 (12:19→13:34)
[2022-12-24] MEDS: Tropicamide 1% Ophth Soln 15 ML Bottle EYERT SCH ×4 (12:23→13:03)
[2022-12-24] MEDS: Tetracaine HCl/PF 0.5% 4 ML Bottle EYEBOTH SCH ×4 (13:20→13:43)
== END 2022-12-24 14:05 | disposition home or self-care (01) ==
LOC: JD.SDS 10:59
PROVIDERS: ATTEND Ophthalmology
DX: H25.813 Combined forms of age-related cataract, bilateral (principal); E03.9 Hypothyroidism, unspecified; M19.90 Unspecified osteoarthritis, unspecified site; Z98.890 Other specified postprocedural states; Z79.899 Other long term (current) drug therapy; Z79.890 Hormone replacement therapy
CPT/HCPCS: 66984; A9270; C1780; J0697; J3490

== ENCOUNTER 2023-03-21 13:31 | Emergency (ER) | payer MEDICARE, BC ==
[2023-03-21] MEDS ORDERED: methylPREDNISolone Sodium Succinate 40 MG/1 ML SDV IM ONE (14:22)
== END 2023-03-21 15:10 | disposition home or self-care (01) ==
LOC: JD.ED 13:31
DX: T78.40XA Allergy, unspecified, initial encounter (principal); E03.9 Hypothyroidism, unspecified; Z79.899 Other long term (current) drug therapy; Z91.048 Other nonmedicinal substance allergy status
CPT/HCPCS: 96372; 99283; J2920

== ENCOUNTER 2024-03-25 03:06 | Emergency (ER) | payer MEDICARE, BC ==
[2024-03-25 04:11] LABS: BASOPHILS PERCENT AUTO 0.1 % (0.0-1.0); EOSINOPHILS ABSOLUTE AUTO 0.2 K/mm3 (0.0-0.4); EOSINOPHILS PERCENT AUTO 1.9 % (0.0-6.0); HEMATOCRIT 36.1 % (37.0-47.0); HEMOGLOBIN 12.4 gm/dl (12.0-16.0); IMMATURE GRAN ABSOLUTE AUTO 0.07 K/mm3 (0.00-0.05); IMMATURE GRAN PERCENT AUTO 0.7 % (0.0-0.4); LYMPHOCYTES ABSOLUTE AUTO 0.4 K/mm3 (1.0-4.8); LYMPHOCYTES PERCENT AUTO 3.6 % (24.0-44.0); MEAN CORPUSCULAR HEMOGLOBIN 30.4 pg (28.0-32.0); MEAN CORPUSCULAR HGB CONC 34.3 g/dl (32.0-36.0); MEAN CORPUSCULAR VOLUME 88.5 fl (83.0-99.0); MEAN PLATELET VOLUME 11.6 fl (9.4-12.3); MONOCYTES ABSOLUTE AUTO 0.4 K/mm3 (0.0-0.8); MONOCYTES PERCENT AUTO 4.4 % (0.0-8.0); NEUTROPHILS PERCENT AUTO 89.3 % (41.0-71.0); PLATELET COUNT,PLT 106 K/mm3 (150-400); RED BLOOD CELL COUNT 4.08 M/mm3 (4.10-5.30)
[2024-03-25] MEDS: HYDROmorphone 1 MG/ML Syringe IVPUSH ONE ×2 (04:12→06:35)
[2024-03-25] MEDS: Sodium Chloride 0.9% 10 ML Syringe FLUSH PRN (04:13)
[2024-03-25 04:29] LABS: A/G RATIO 1.2 (1-2); ALBUMIN 3.6 g/dl (3.4-5.0); ANION GAP 16.6 (5-15); BILIRUBIN TOTAL 2.5 mg/dL (0.2-1.0); BUN/CREATININE RATIO 14.5 (14-18); CREATININE 1.1 mg/dL (0.55-1.02); EST CRCL DRUG DOSING (CG) 41.21 mL/min; POTASSIUM,K 3.6 mEq/L (3.5-5.1); PROTEIN TOTAL,TP 6.7 g/dl (6.4-8.2)
== END 2024-03-25 06:45 ==
LOC: JD.ED 03:06
DX: S72.002A Fracture of unspecified part of neck of left femur, initial encounter for closed fracture (principal); I10 Essential (primary) hypertension; Z90.49 Acquired absence of other specified parts of digestive tract; Z90.710 Acquired absence of both cervix and uterus; Z91.09 Other allergy status, other than to drugs and biological substances
CPT/HCPCS: 36415; 72170; 73552; 80053; 85025; 96374; 96376; 99285; J1170; J3490